=== PATIENT | male | born 1985 | race Two or more races ===

== ENCOUNTER → 2020-10-01 | Outpatient (CLI) | payer OTHER ==
[~2020-10-01] MED LIST: ATOR40TA59 PO; BISO10TA PO; BUPIVACAINE MPF 0.25% 10 ML VIAL. ONE; BUPR300T92 PO; BUSP15TA PO; CETI10TA16 PO; CYPR4TAB31 PO; ERGO2500 PO; FAMO20TA5 PO; GABA300C18 PO; HYDR25CA75 PO; IOHEXOL 180 MG/ML 10 ML VIAL. ONE; METH-38 PO; MIRT30TA93 PO; PANT40TA77 PO; RISP2TAB33 PO; SERT100T PO; methylPREDNISolone ACETATE 40 MG/ML VIAL. ONE; methylPREDNISolone ACETATE 80 MG/ML VIAL. ONE
--- NOTE | 2020-10-01 12:55 | PDOC1 ---
INITIAL PAIN CONSULT DATE OF SERVICE: DOS: DATE: 10/01/20 TIME: 12:47 CHIEF COMPLAINT: Chief Complaint: Low back pain right greater than left HISTORY OF PRESENT ILLNESS: 35-year-old male presents history of pain low back bilaterally for about 3 years patient reports originally with radiation to lower extremities but had a spinal cord stimulator placed through the [facility] in 2016 which at that time helped with the pain in the leg and the legs but did not help with the low back pain. Patient reports now is getting much worse over time no specific injury or accident he is aware but with active history has had multiple injuries to his back over the years. Patient reports it is getting worse in the low back bilaterally some radiating to the right hip and thigh occasionally but mostly just in the low back and on the left side as well. Patient reports is worse with walking standing changing positions especially extension lumbar spine and axial loading of the low back patient scribes pain is constant sharp stabb ing throbbing worse with activity aching in the back as well. Patient reports it wakes him sleep release once or twice a night does not affect his bowel bladder control but does affect his body to walk and he usually has a cane with him but does not have it with him today. Patient reports he has had no recent physical therapies chiropractic treatment or other modalities of treatment but is doing exercises daily and feels best when he is laying on his stomach. Patient rates his disability rating 0-10 10 being the worst is a 7 with him home responsibilities recreation and occupational activities 5 with social activity 3 with sexual Haver 5 with self-care and fourth life support activities. Patient has had no recent diagnostic studies or imaging of the lumbar spine. PAST MEDICAL HISTORY: PMH: Hypertension, hypercholesterolemia, acid reflux, hearing loss, headaches and dizziness, peripheral neuropathy PREVIOUS SURGERIES: Past Surgical Hx: Lumbar spinal cord stimulator placement 2017 CURRENT MEDICATIONS: Current Meds: Active Scripts Medications Dose Route/Sig Max Daily Dose Days Date Category Zoloft (Sertraline Hcl) 100 Mg Tablet 1 Tab PO DAILY 10/01/20 Reported Risperdal (Risperidone) 2 Mg Tablet 4 Mg PO QHS 10/01/20 Reported Risperdal (Risperidone) 2 Mg Tablet 2 Mg PO DAILYWSUP 10/01/20 Reported Pantoprazole Sodium (Pantoprazole Sodium) 40 Mg Tablet.dr 40 Mg PO DAILYAC 10/01/20 Reported Mirtazapine 30 Mg Tab.rapdis 1 Tab PO QHS 30 10/01/20 Reported Robaxin-750 (Methocarbamol) 750 Mg Tablet 750 Mg PO QID 10/01/20 Reported Hydroxyzine Pamoate 25 Mg Capsule 25 Mg PO QID 10/01/20 Reported Gabapentin (Gabapentin) 300 Mg Capsule 300 Mg PO HS 10/01/20 Reported Famotidine 20 Mg Tablet 20 Mg PO HS 10/01/20 Reported Ergocal (Ergocalciferol (Vitamin D2)) 62.5 Mcg Capsule 1,250 Mcg PO WEEKLY 10/01/20 Reported Cyproheptadine Hcl 4 Mg Tablet 8 Mg PO HS 10/01/20 Reported Cetirizine Hcl 10 Mg Tablet 1 Tab PO DAILY 10/01/20 Reported Buspirone Hcl 15 Mg Tablet 1 Tab PO BID 10/01/20 Reported Bupropion Xl (Bupropion Hcl) 300 Mg Tab.er.24h 1 Tab PO DAILYWBKFT 10/01/20 Reported Bisoprolol Fumarate 10 Mg Tablet 10 Mg PO DAILY 10/01/20 Reported Atorvastatin Calcium 40 Mg Tablet 80 Mg PO HS 10/01/20 Reported FAMILY HISTORY: Family Hx: Heart disease, Alzheimer's disease SOCIAL HISTORY: Social Hx: Patient drinks alcohol about 1-2 drinks twice a week does not smoke not use any illegal illicit recreational drugs is lives with his spouse has 1 child living at home and lives locally in [facility] REVIEW OF SYSTEMS: ROS: Positive for those items mentioned in history of present illness, all systems are reviewed, otherwise negative, is complete full and well-documented on patient's chart. PHYSICAL EXAM: VS: Blood pressure is 157/84 pulse 63 respirations 18 temperature 90.0 F height is 6 foot 3 inches weight is 314 pounds PE: PHYSICAL EXAMINATION: GENERAL: The patient is awake, alert, oriented, appropriate, very pleasant demeanor HEENT: Shows normocephalic, atraumatic. Extraocular movements are intact and symmetrical. Full alonso and mustache. Oral cavity: Mucous membranes moist and pink. Dentition is intact. NECK: Shows anterior throat supple without palpable lymphadenopathy noted. Swallow reflex symmetrical. CHEST: Shows normal on inspection. Breath sounds are clear bilaterally, no rales rhonchi wheezes auscultated. HEART: Shows S1, S2 clear. No murmurs auscultated. ABDOMEN: Soft, nontender, nondistended, obese. No palpable organomegaly is noted. No rebound or guarding demonstrated. BACK: Shows spine grossly in the midline. Normal-appearing cervical lordotic curvature. There is slightly increased thoracic kyphosis, some minor flattening of the lumbar lordotic curvature. Well-healed small surgical scarring is noted bilaterally in the lumbar distribution. Left posterior gluteus shows scarring with easily palpable spinal cord stimulator generator which is mobile but nontender. Lumbar paraspinous muscles show symmetrical on inspection, on palpation shows some moderate tenderness diffusely throughout the upper, middle and lower distribution of the paraspinous muscles bilaterally and also into the lower thoracic paraspinous musculature, firm and tender, but without specific trigger points, without radiation of pain. The patient has good rotational motion of the lumbar spine, both laterally right equal to left with more pain with right lateral rotation past 10 degrees, extension to significant pain in the lumbar spine bilaterally again worse on the right than the left this is de creased with 45 degrees forward flexion but not completely relieved. No tenderness over the spinous processes, sacrum or sacroiliac regions. EXTREMITIES: Lower extremities show deep tendon reflexes 2+ in the patellar and tendo calcaneus tendons. Motor exam is 5 on a scale of 5 with right dorsiflexion, extension, quadriceps and hamstring flexion and 5/5 on the left. Peripheral pulses are 1+ posterior tibial. No peripheral edema is noted bilaterally. Lower extremities are warm and dry to touch, equal in color and appearance. Straight leg raise noted to be negative bilaterally. Gaenslen's and Drew's maneuvers are negative bilaterally as well. The patient is able to stand, stand on his toes without significant difficulty or loss of balance walks with a slight favoring gait favoring the right lower extremity but not use any assistive devices on his visit today. SKIN: Shows warm and dry, good turgor. No edema. No sores, rashes or bruising throughout. IMPRESSION: Impression: 35-year-old male with 3 to 4-year history increasing low back pain consistent with rotational movement and extension, consistent with lumbar facet syndrome Spinal cord stimulator placement 2017 Hypertension Hearing loss Plan: Options were discussed with the patient including conservative medical management physical therapies and interventional techniques. Patient would like to pursue interventional techniques. We discussed bilateral L4-5 and L5-S1 facet joint injections using descriptions as well as anatomical models to describe the procedure. Patient understands and wishes to proceed. Risks were discussed including but not limited to: Bleeding, infection, possibility of epidural hematoma and subsequent neurological compromise, dural puncture, head aches, spinal cord and/or nerve damage, side effects of steroid medication, and poor results regarding pain control. Patient understands wished to proceed. Patient will return to clinic in approximate 2 weeks for follow-up, was counseled as return appointment activity level, and side effects to be aware of. Under sterile prep and drape using C-arm fluoroscopic guidance AP and lateral and oblique views, bilateral L4-5 and L5-S1 facet joint injections were performed, medications injected: 120 mg Depo-Medrol +4 cc 0.25% bupivacaine +2 cc contrast. Condition at discharge stable patient tolerated the procedure well and no complications. JANA JAMES MD Oct 01, 2020 12:55
== END | disposition home or self-care (01) ==
LOC: PNCL 11:02
PROVIDERS: ATTEND Anesthesiology
DX: M54.5 Low back pain (principal); M47.816 Spondylosis without myelopathy or radiculopathy, lumbar region; I10 Essential (primary) hypertension; E78.00 Pure hypercholesterolemia, unspecified; K21.9 Gastro-esophageal reflux disease without esophagitis; G62.9 Polyneuropathy, unspecified; Z82.49 Family history of ischemic heart disease and other diseases of the circulatory system; Z79.899 Other long term (current) drug therapy; Z98.890 Other specified postprocedural states
CPT/HCPCS: 64635; 64636; J1030; J1040; J3490; Q9965

== ENCOUNTER → 2020-10-22 | Outpatient (CLI) | payer OTHER ==
--- NOTE | 2020-10-22 09:51 | PDOC ---
Progress Note - Pain Clinic Date of Service: DOS: DATE: 10/22/20 TIME: 09:48 Diagnosis: Dx: Lumbar degenerative disc disease with low back pain and lumbar and lumbosacral spondylosis History or Present Illness: HPI: 35-year male returns follow-up status post bilateral L4-5 and L5-S1 facet joint injections. Reports over the first several days it was about 90% improved the pain began to return and now 2 weeks later or so it is approximately 30% improved overall but still helping. Patient better on the left side than the ri ght still some more pain on the right side than left but overall feeling much better. Patient reports for the improved. He was increasing his walking distance doing work activities household activities sitting greater ease and comfort sleeping better patient reports no new motor or sensory deficits but reports pain in the low back itself with radiation across the low back but not into the lower extremities. Patient reports is a 9 on scale 10 is worse over the past week 7 on average 6 its least is a 7 today patient reports is aching and sharp scribes it is shooting across the back burning radiating with increased walking standing and sitting. Patient reports no new motor or sensory deficits no new bowel or bladder incontinence Physical Exam: VS: Blood pressure is 139/101 pulse 84 respirations 16 temperature 98.0 F height is 6 foot 3 inches weight is 306 pounds PE: PHYSICAL EXAMINATION: GENERAL: The patient is awake, alert, oriented, appropriate, very pleasant demeanor HEENT: Shows normocephalic, atraumatic. Extraocular movements are intact and symmetrical. Oral cavity: Mucous membranes moist and pink. NECK: Shows anterior throat supple without palpable lymphadenopathy noted. Swallow reflex symmetrical. CHEST: Shows normal on inspection. Breath sounds are clear bilaterally. HEART: Shows S1, S2 clear. No murmurs auscultated. ABDOMEN: Soft, nontender, nondistended, obese. No palpable organomegaly is noted. BACK: Shows spine grossly in the midline. Normal-appearing cervical lordotic curvature. There is slightly increased thoracic kyphosis, some minor flattening of the lumbar lordotic curvature. Lumbar paraspinous muscles show symmetrical on inspection, on palpation shows some moderate tenderness diffusely throughout the upper, middle and lower distribution of the paraspinous muscles, but without specific trigger points, without radiation of pain. The patient has good rotational motion of the lumbar spine, both laterally greater than 10 degrees with some significant pain with rotation on the right greater than left also with extension and axial loading lumbar spine significant pain in the low back again right greater than left this is decreased with forward flexion 45 degrees which is performed without difficulty. No tenderness over the spinous processes, sacrum or sacroiliac regions. EXTREMITIES: Lower extremities show deep tendon reflexes 2+ in the patellar and tendo calcaneus tendons. Motor exam is 5 on a scale of 5 with right dorsiflexion, extension, quadriceps and hamstring flexion and 5/5 on the left. Peripheral pulses are 1+ posterior tibial. No peripheral edema is noted bilaterally. Lower extremities are warm and dry to touch, equal in color and appearance. SKIN: Shows warm and dry, good turgor. No edema. No sores, rashes or bruising throughout. Procedure: Procedure: Options were discussed with the patient. Patient chart reviewed his current medication regimen updated current review of systems updated today as well. We will proceed with bilateral L4-5 and L5-S1 facet joint injections today with fluoroscopic guidance. Risks were discussed including but not limited to: Bleeding, infection, possibility of epidural hematoma and subsequent neurological compromise, dural puncture, headaches, spinal cord and/or nerve damage, side effects of steroid medication, and poor results regarding pain control. Patient understands and wished to proceed. Patient will return to clinic in approximate 2 weeks for follow-up, was counseled as to return appointment activity level, and side effects to be aware of. We discussed potential of radiofrequency ablation in the future as well if patient has significant decrease in pain with these in injections today. Medication Injected: Med Injected: Under sterile prep and drape using C-arm fluoroscopic guidance AP and lateral and oblique views, bilateral L4-5 and L5-S1 facet joint injections were performed, medications injected: 120 mg Depo-Medrol +4 cc 0.25% bupivacaine +2 cc contrast. Condition at discharge stable patient tolerated the procedure well and no complications. Condition at Discharge: Condition at Discharge: Condition at discharge stable, patient tolerated procedure well and had no complications. JANA JAMES MD Oct 22, 2020 09:51
--- NOTE | 2020-10-22 09:52 | PDOC4 ---
PROCEDURE Procedure Patient was consented for bilateral L4-5 and L5-S1 facet joint injections. Risks were discussed including but not limited to: Bleeding, infection, possibility of epidural hematoma and subsequent neurological compromise, dural puncture, headaches, spinal cord and/or nerve damage, side effects of steroid medication, and poor results regarding pain control. Patient understands and wished to proceed. Under sterile prep and drape using C-arm fluoroscopic guidance AP and lateral and oblique views, bilateral L4-5 and L5-S1 facet joint injections were performed, medications injected: 120 mg Depo-Medrol +4 cc 0.25% bupivacaine +2 cc contrast. Condition at discharge stable patient tolerated the procedure well and no complications. JANA JAMES MD Oct 22, 2020 09:52
== END | disposition home or self-care (01) ==
LOC: PNCL 09:08
PROVIDERS: ATTEND Anesthesiology
DX: M51.36 Other intervertebral disc degeneration, lumbar region (principal); M47.817 Spondylosis without myelopathy or radiculopathy, lumbosacral region; Z79.899 Other long term (current) drug therapy; Z98.890 Other specified postprocedural states
CPT/HCPCS: 64493; 64494; J1030; J1040; J3490; Q9965; 64635; 64636

== ENCOUNTER → 2020-12-01 | Outpatient (CLI) | payer OTHER ==
[~2020-12-01] MED LIST changes: -IOHEXOL 180 MG/ML 10 ML VIAL. ONE; +LIDOCAINE 1% PF 2 ML VIAL. ONE; +LIDOCAINE 2% PF 5 ML VIAL. ONE
--- NOTE | 2020-12-01 14:57 | PDOC ---
Progress Note - Pain Clinic Date of Service: DOS: DATE: 12/01/20 TIME: 14:52 Diagnosis: Dx: Low back pain with lumbar degenerative disease and lumbar and lumbosacral spondylosis History or Present Illness: HPI: 35-year-old male returns for follow-up status post bilateral lumbar facet medial branch blocks with good results initially pain returning fairly quickly that within a week or 2 in the low back itself bilaterally slightly worse on the right than left and present bilaterally in the low back without radiation to lower extremities. Patient has had 2 lumbar facet medial branch blocks at this time and has had similar results. Patient reports about 90% improvement for the first few days then down to about 40 to 50% improvement overall patient reports still about 20% improved in the low back currently patient reports is an 8 on scale 10 is worse over the past week 6 on average and a 4 to sleep patient reports no new motor or sensory deficits no new bowel or bladder incontinence scribes pain is aching and sharp tight shooting across the back stabbing at times worse with walking standing getting up from seated position or sitting for too long especially with extension lumbar spine axial loading of the low back. Patient ports it sporadically wakes him from sleep at night but not every night. Patient reports no new motor or sensory deficits no new bowel bladder incontinence or other complaints. Physical Exam: VS: Blood pressure is 133/95 pulse 101 respirations 18 temperature 98.3 F, height is 6 foot 3 inches, weight is 308 pounds PE: PHYSICAL EXAMINATION: GENERAL: The patient is awake, alert, oriented, appropriate, very pleasant demeanor HEENT: Shows normocephalic, atraumatic. Extraocular movements are intact and symmetrical. Oral cavity: Mucous membranes moist and pink. Dentition is intact. Patient has full alonso and mustache NECK: Shows anterior throat supple without palpable lymphadenopathy noted. Swallow reflex symmetrical. CHEST: Shows normal on inspection. Breath sounds are clear bilaterally, no rales or rhonchi bilaterally. HEART: Shows S1, S2 clear. No murmurs auscultated. ABDOMEN: Soft, nontender, nondistended, obese. No palpable organomegaly is noted. BACK: Shows spine grossly in the midline. Normal-appearing cervical lordotic curvature. There is slightly increased thoracic kyphosis, some flattening of the lumbar lordotic curvature. Patient has well-healed surgical scarring from previous spinal cord stimulator placement and easily palpable stimulator ge nerator in the left superior medial gluteus. Lumbar paraspinous muscles show symmetrical on inspection, on palpation shows some moderate tenderness diffusely throughout the upper, middle and lower distribution of the paraspinous muscles, but without specific trigger points, without radiation of pain. The patient has good rotational motion of the lumbar spine, both laterally as well as extension and flexion without significant difficulty. No tenderness over the spinous processes, sacrum or sacroiliac regions. EXTREMITIES: Lower extremities show deep tendon reflexes 2+ in the patellar and tendo calcaneus tendons. Motor exam is 5 on a scale of 5 with right dorsiflexion, extension, quadriceps and hamstring flexion and 5/5 on the left. Peripheral pulses are 1+ posterior tibial. No peripheral edema is noted bilaterally. Lower extremities are warm and dry to touch, equal in color and appearance. SKIN: Shows warm and dry, good turgor. No edema. No sores, rashes or bruising throughout. Procedure: Procedure: Discussed with the patient. Patient will chart reviews his current medication regimen updated current review of systems updated today as well. We will proceed with bilateral L4-5 and L5-S1 medial branch facet radiofrequency ablation with fluoroscopic guidance. Risks were discussed including but not limited to: Bleeding, infection, possibility of epidural hematoma and subsequent neurological compromise, dural puncture, headaches, spinal cord and/or nerve damage, side effects of steroid medication, and poor results regarding pain control. Patient understands and wished to proceed. Patient will return to clinic in approximate 3 weeks for follow-up, was counseled as to return appointment activity level and side effects to be aware of. Medication Injected: Med Injected: Under sterile prep and drape patient in prone position using C-arm fluoroscopic guidance patient's lumbar spine was visualized in both AP oblique and lateral views using 1% lidocaine to topically anesthetize the areas overlying the L3-4, L4-5 and L5-S1 facet joints at the point of the medial branches. Using a 22- gauge insulated radiofrequency needle with curved tips and stylette, the needles were advanced to contact the region of the facet with the medial branch targets. This was repeated at the L3-4 L4-5 and L5-S1 levels. Stylette was removed and using radiofrequency probe inserted into each needle individually at each level and then motor tested with no motor stimulation of the lower extremity. Patient did have some multifidus musculature contraction in the lumbar spine only but without radiation. At this time 1 cc of 2% lidocaine was then injected in each needle after motor testing but prior to radiofrequency ablation. Needle position was confirmed continuously throughout the radiofrequency ablation with both AP oblique and lateral views at each level. At this time radiofrequency ablation was carried out each level for 60 seconds at 80 C x 2 at each level with the tip of the needle turned 90 degrees after the first 60 seconds and then subsequent 60 seconds of radiofrequency ablation. Once radiofrequency ablation was completed solution containing 0.25% bupivacaine 1 cc and 20 mg Depo-Medrol was injected each level. Needle was then withdrawn. The procedure was repeated for the contralateral side as described as well. Patient had no paresthesias th roughout the procedure no radiation of pain into the lower extremities no lower extremity motor response with motor testing bilaterally. Please see radiofrequency flowsheet for levels, temperatures, impedance, etc. Condition at Discharge: Condition at Discharge: Condition at discharge stable, patient alert the procedure well and had no complications. JANA JAMES MD Dec 01, 2020 14:57
== END | disposition home or self-care (01) ==
LOC: PNCL 12:48
PROVIDERS: ATTEND Anesthesiology
DX: M51.36 Other intervertebral disc degeneration, lumbar region (principal); M47.817 Spondylosis without myelopathy or radiculopathy, lumbosacral region; Z79.899 Other long term (current) drug therapy
CPT/HCPCS: 64635; 64636; J1030; J1040; J3490

== ENCOUNTER → 2020-12-29 | Outpatient (CLI) | payer OTHER ==
[~2020-12-29] MED LIST changes: -BUPIVACAINE MPF 0.25% 10 ML VIAL. ONE; -LIDOCAINE 1% PF 2 ML VIAL. ONE; -LIDOCAINE 2% PF 5 ML VIAL. ONE; -methylPREDNISolone ACETATE 40 MG/ML VIAL. ONE; -methylPREDNISolone ACETATE 80 MG/ML VIAL. ONE
--- NOTE | 2020-12-29 12:07 | PDOC ---
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 Patient reports only about 20% improvement but reports that it is a significantly decreased amount of pain has had over the past month or so he is only having 1 or 2 days a month now where he is having unbearable pain where it used to be 3 to 4 days a week. Patient reports while it is better it is still significant pain in the low back itself some radiation the posterior gluteus but into the mid upper back as well. Patient reports moving with better ease and comfort with some improved mobility but still significant pain patient reports it does not awaken from sleep at nig ht generally worse with walking standing changing position especially bending or stooping and extension of the lumbar spine patient reports the pain is aching and sharp tight shooting across the back can be radiating to the hips posteriorly on and off in intensity patient reports is an 8 on scale 10 is worse over the past week 6 on average for its least is a 4 today. Patient reports no new motor or sensory deficits no new bowel or bladder incontinence or other complaints. We discussed his dorsal root ganglion stimulator may need revision and/or replacement and we will make arrangements through the [facility] approval to get this looked at by a local surgeon recommended by his stimulator company. Physical Exam: VS: Blood pressure is 142/99 pulse 101 respirations 18 temperature 98.2 F height is 6 feet 3 inches weight is 308 pounds PE: PHYSICAL EXAMINATION: GENERAL: The patient is awake, alert, oriented, appropriate, very pleasant demeanor HEENT: Shows normocephalic, atraumatic. Extraocular movements are intact and symmetrical. Oral cavity: Mucous membranes moist and pink. Dentition is intact. NECK: Shows anterior throat supple without palpable lymphadenopathy noted. Swallow reflex symmetrical. CHEST: Shows normal on inspection. Breath sounds are clear bilaterally, no rales or rhonchi. HEART: Shows S1, S2 clear. No murmurs auscultated. ABDOMEN: Soft, nontender, nondistended, obese. No palpable organomegaly is noted. No rebound or guarding demonstrated. BACK: Shows spine grossly in the midline. Normal-appearing cervical lordotic curvature. There is slightly increased thoracic kyphosis, some minor flattening of the lumbar lordotic curvature. Well-healed surgical scarring is again noted. Lumbar paraspinous muscles show symmetrical on inspection, on palpation shows some moderate tenderness diffusely throughout the upper, middle and lower distribution of the paraspinous muscles, but without specific trigger points, without radiation of pain. The patient has good rotational motion of the lumbar spine, both laterally with some moderate pain with right and left lateral rotation greater than 10 degrees but pain relieved with forward flexion 45 degrees of extension lumbar spine moderate tenderness but improved from previous exam. No tenderness over the spinous processes, sacrum or sacroiliac regions. EXTREMITIES: Lower extremities show deep tendon reflexes 2+ in the patellar and tendo calcaneus tendons. Motor exam is 5 on a scale of 5 with right dorsiflexion, extension, quadriceps and hamstring flexion and 5/5 on the left. Peripheral pulses are 1+ posterior tibial. No peripheral edema is noted bilaterally. Lower extremities are warm and dry to touch, equal in color and appearance. SKIN: Shows warm and dry, good turgor. No edema. No sores, rashes or bruising throughout. Procedure: Procedure: Options were discussed with the patient. Patient will chart reviews her current medication regimen updated current review of systems updated today as well. We will make requested referral for dorsal root ganglion stimulator evaluation and possible revision as requested by the patient. Patient will follow up after this referral and as needed. Medication Injected: Med Injected: None Condition at Discharge: Condition at Discharge: Condition at discharge is stable. JANA JAMES MD Dec 29, 2020 12:07
== END | disposition home or self-care (01) ==
LOC: PNCL 11:09
PROVIDERS: ATTEND Anesthesiology
DX: M51.36 Other intervertebral disc degeneration, lumbar region (principal); M47.817 Spondylosis without myelopathy or radiculopathy, lumbosacral region; Z79.899 Other long term (current) drug therapy
CPT/HCPCS: 99212; G0463